=== PATIENT | female | born 1965 | race Asian ===

== ENCOUNTER 2023-09-18 13:15 | Outpatient (RCR) | payer OTHER, SELFPAY | END 2023-12-15 10:13 | disposition home or self-care (01) | LOC: ANHDMC 13:15 | PROVIDERS: PCP Internal Medicine; Visit Provider Internal Medicine | DX: E11.9 Type 2 diabetes mellitus without complications (principal); Z71.89 Other specified counseling | CPT/HCPCS: G0108 ==